=== PATIENT | male | born 1990 | race African-American/Black ===

== ENCOUNTER 2019-03-25 02:27 | Emergency (ER) | payer MEDICAID ==
[~2019-03-25] VITALS: Ht 177.8 cm; Wt 107.0 kg
[2019-03-25] MEDS ORDERED: ACETAMINOPHEN 325MG TABLET PO STA (04:39)
[2019-03-25] MEDS ORDERED: SODIUM CHLORIDE 0.9% 1,000 ML IV ONE (04:39)
[2019-03-25] MEDS ORDERED: METHYLPREDNISOLONE SOD SUCC 125 MG/2 ML VIAL IV ONE (04:45)
[2019-03-25 05:28] LABS: BASOPHILS % 0.6 % (0.0-2.0); EOSINOPHILS % 0.8 % (0.0-5.0); HEMATOCRIT. 38.5 % (42.0-52.0); HEMOGLOBIN. 13.1 g/dL (14.0-18.0); MEAN CORPUSCULAR HEMOGLOBIN 29.5 pg (28.0-32.0); MEAN CORPUSCULAR VOLUME 86.3 fL (80.0-94.0); MEAN PLATELET VOLUME 8.3 fl (7.4-10.4); MONOCYTES % 9.2 % (2.0-8.0); NEUTROPHILS % 74.4 % (40.0-76.0); PLATELET 265 x1000/uL (130-400); RED BLOOD CELL COUNT 4.46 mill/uL (4.7-6.1)
[2019-03-25 05:34] LABS: CHLORIDE 102 mEq/L (98-107)
[2019-03-25 07:41] VITALS: BP 127/78
[2019-03-25 08:11] LABS: CLARITY URINE CLEAR (CLEAR); COLOR URINE YELLOW (YELLOW); KETONES URINE NEGATIVE (NEGATIVE); LEUKOCYTE ESTERASE URINE NEGATIVE (NEGATIVE); NITRITE URINE NEGATIVE (NEGATIVE); OCCULT BLOOD URINE NEGATIVE (NEGATIVE); PH URINE 5.5 (4.5-8.0); PROTEIN URINE NEGATIVE (NEGATIVE); SPECIFIC GRAVITY URINE 1.013 (1.005-1.030)
== END 2019-03-25 08:52 | disposition home or self-care (01) ==
LOC: ER 02:27
DX: R21 Rash and other nonspecific skin eruption (principal); R50.9 Fever, unspecified
CPT/HCPCS: 36415; 71045; 80053; 81003; 85025; 96374; 99284; J2930; J7030; Z7610

== ENCOUNTER 2024-07-10 22:24 | Emergency (ER) | payer MEDICAID ==
[~2024-07-10] VITALS: Ht 177.8 cm; Wt 121.0 kg
[2024-07-10 22:35] VITALS: O2SAT 98
[2024-07-10 23:44] LABS: CLARITY URINE TURBID (CLEAR); COLOR URINE DARK YELLOW (YELLOW); GLUCOSE URINE NEGATIVE (NEGATIVE); KETONES URINE TRACE (NEGATIVE); LEUKOCYTE ESTERASE URINE 2+ (NEGATIVE); NITRITE URINE NEGATIVE (NEGATIVE); OCCULT BLOOD URINE 3+ (NEGATIVE); PROTEIN URINE 3+ (NEGATIVE); SPECIFIC GRAVITY URINE 1.027 (1.005-1.030)
[2024-07-11] MEDS ORDERED: CEFP200T14 MT (01:54)
[2024-07-11 02:12] VITALS: BP 125/78; PULSE 97; RESP 14; TEMP 37; O2SAT 98
[2024-07-11 04:53] LABS: BACTERIA URINE 2+; RBC URINE TNTC /hpf (0-2); SQUAMOUS EPITHELIAL CELL URINE 1+ /lpf (RARE/1+); WBC URINE TNTC /hpf (0-2)
== END 2024-07-11 02:19 | disposition home or self-care (01) ==
LOC: ER 22:24
DX: N39.0 Urinary tract infection, site not specified (principal)
CPT/HCPCS: 81003; 99283

== ENCOUNTER 2024-10-03 21:28 | Emergency (ER) | payer MEDICAID ==
[~2024-10-03] VITALS: Ht 177.8 cm; Wt 116.0 kg
[~2024-10-03 21:28] MED LIST: CEFP200T14 MT
[2024-10-03 21:42] VITALS: O2SAT 98
[2024-10-03 23:14] LABS: CLARITY URINE CLEAR (CLEAR); COLOR URINE YELLOW (YELLOW); GLUCOSE URINE NEGATIVE (NEGATIVE); KETONES URINE NEGATIVE (NEGATIVE); LEUKOCYTE ESTERASE URINE 2+ (NEGATIVE); NITRITE URINE NEGATIVE (NEGATIVE); OCCULT BLOOD URINE 1+ (NEGATIVE); PH URINE 5.5 (4.5-8.0); PROTEIN URINE NEGATIVE (NEGATIVE); SPECIFIC GRAVITY URINE 1.007 (1.005-1.030)
[2024-10-04] MEDS ORDERED: CEPH500T MT (00:06)
[2024-10-04 00:49] VITALS: BP 116/73; PULSE 82; RESP 20; TEMP 36.7; O2SAT 98
[2024-10-04 02:41] LABS: SQUAMOUS EPITHELIAL CELL URINE NONE SEEN /lpf (RARE/1+)
[2024-10-04 02:43] LABS: WBC URINE 25-50 /hpf (0-2)
[2024-10-04 02:44] LABS: BACTERIA URINE 1+; RBC URINE 0-2 /hpf (0-2)
== END 2024-10-04 01:27 | disposition home or self-care (01) ==
LOC: ER 21:28
DX: N39.0 Urinary tract infection, site not specified (principal); Z98.890 Other specified postprocedural states; Z79.899 Other long term (current) drug therapy
CPT/HCPCS: 81003; 87077; 87186; 87591; 99283